=== PATIENT | male | born 1935 | race Caucasian/White ===

== ENCOUNTER 2016-05-20 19:07 | Emergency (ER) | payer SELFPAY ==
[~2016-05-20] VITALS: Ht 172.7 cm; Wt 72.5 kg
[2016-05-20 19:17] VITALS: Ht 172.7 cm; Wt 72.5 kg
--- NOTE | 2016-05-20 20:03 | ERD ---
ER Documentation Chief Complaint Date/Time DATE: 05/20/16 TIME: 20:00 Chief Complaint cough x 2 weeks w/ mucoud secretions HPI 81-year-old male with a history of hypertension and atrial fibrillation presenting with a cough 2 weeks. Initially the symptoms started off as a cold. However he has had progressively worsening cough. He has associated white phlegm. Daughter feels like he is wheezing. He denies any associated fevers, chills, chest pain. He does complain of occasional left upper back pain. Denies abdominal pain, nausea, vomiting, diarrhea. ROS All systems reviewed and are negative except as per history of present illness. Medications Home Meds Active Scripts Azithromycin* (Azithromycin*) 250 Mg Tablet, 250 MG PO DAILY, #6 TAB Take 2 tablets on day 1, then one tablet daily on days 2-5 Prov:TIERA KIRBY MD 05/20/16 Allergies Allergies: Coded Allergies: No Known Allergy (Unverified , 05/20/16) PMhx/Soc Hx Cardiac Disorders: Yes (Hypertension, atrial fibrillation) Hx Alcohol Use: No Hx Substance Use: No Smoking Status: Former smoker FmHx Family History: No diabetes Physical Exam Vitals Vital Signs Date Time Temp Pulse Resp B/P Pulse Ox O2 Delivery O2 Flow Rate FiO2 05/20/16 21:04 98.4 71 18 128/71 97 Room Air 05/20/16 20:30 97.8 79 20 130/79 99 Room Air 05/20/16 19:17 97.8 104 20 121/84 99 Physical Exam Const: Well-appearing, no distress, speaking in full sentences Head: Atraumatic Eyes: Normal Conjunctiva ENT: Normal External Ears, Nose and Mouth. Neck: Full range of motion..~ No meningismus. Resp: Left basilar crackles, otherwise lungs clear. No wheezing or rhonchi Cardio: Irregularly irregular rhythm, normal rate, no murmurs Abd: Soft, non tender, non distended. Normal bowel sounds Skin: No petechiae or rashes Back: No midline or flank tenderness Ext: No cyanosis, or edema. 2+ distal pulses Neur: Awake and alert and oriented 3, strength and sensations are intact in all 4 extremities Psych: Normal Mood and Affect Procedures/MDM Patient presenting with cough for 2 weeks that is worsening. He has no associated chest pain. I do not suspect acute coronary syndrome, pulmonary embolism, aortic dissection, or pneumothorax. There are no signs of heart failure. His symptoms are consistent with possible bronchitis versus pneumonia. His checks x-ray shows evidence of COPD with possible signs of pneumonia. Given his worsening symptoms, prescription for antibiotics were given. I discussed with the patient and his daughter the results of the chest x -ray and recommended follow-up with primary care physician to discuss possibility of COPD, as he has not received a diagnosis with this in the past. Patient is currently clinically stable with normal vitals and is afebrile. I do not think he needs admission at this time. He is appropriate for outpatient therapy for his possible pneumonia. Return precautions were discussed at length. Patient will follow up with primary care doctor in 1-2 days. Departure Diagnosis: Primary Impression: Cough Condition: Stable TIERA KIRBY MD May 20, 2016 20:03
--- NOTE | 2016-05-20 20:44 | RADRPT ---
PROCEDURE: XR Chest. CLINICAL INDICATION: Cough for 2 weeks. TECHNIQUE: PA and Lateral views of the chest were obtained. COMPARISON: None. FINDINGS: Cardiomegaly with likely changes of COPD and centrolobular emphysema. Suspected interstitial lung d isease in the inferior right upper lobe and at the bilateral lung bases. No signs of pleural fluid o r pneumothorax are seen. The osseous structures and soft tissues are unremarkable. IMPRESSION: 1. Cough with suspected bilateral lung base and right upper lobe interstitial lung disease. 2. Consider CT examination of the chest for further evaluation. RPTAT: [facility] Physician Henrry Date Time Electronically viewed and signed by Physician Henrry on 05/20/2016 20:44 RS/
[2016-05-20] MEDS ORDERED: AZIT250T4 PO (20:55)
[2016-05-20 21:04] VITALS: BP 128/71; PULSE 71; RESP 18; TEMP 98.4
== END 2016-05-20 21:11 | disposition home or self-care (01) ==
LOC: E/R 19:07
DX: R05 Cough (principal); I10 Essential (primary) hypertension; Z87.891 Personal history of nicotine dependence
CPT/HCPCS: 71020